=== PATIENT | male | born 1940 | race Caucasian/White ===

== ENCOUNTER → 2022-02-28 | Emergency (ER) | payer MEDICARE, BC ==
[~2022-02-28] MED LIST: HYDROcodone/Acetaminophen 5/325 mg Tablet ONE; Iopamidol 370 76% 100 ML VIAL ONE
[2022-02-28 11:09] LABS: #Basophils 0.1 10x3/uL (0.0-0.2); #Eosinphils 0.3 10x3/uL (0.0-0.5); #Monocytes 1.6 10x3/uL (0.0-1.1); #Neutrophils 7.4 10x3/uL (1.5-8.4); %Basophils 0.4 % (0.0-2.0); %Eosinophils 2.3 % (0.0-6.0); %Lymphocytes 16.2 % (18.0-47.0); %Monocytes 14.2 % (0.0-10.0); %Neutrophils 66.3 % (40.0-75.0); Hemoglobin 12.5 g/dL (13.5-17.5); Mean Corpuscular HGB CONC 32.9 g/dL (32.0-36.0); Mean Corpuscular Hemoglobin 30.3 pg (27.0-33.0); Mean Corpuscular Volume 92.2 fl (81.2-95.1); Platelet Count 332 10x3/uL (150-450); RBC Distribution Width 14.2 % (11.5-14.5); Red Blood Cell (RBC) Count 4.12 10x6/uL (4.32-5.72); White Blood Cell (WBC) Count 11.2 10x3/uL (3.5-10.5)
[2022-02-28 11:28] LABS: ALT (SGPT) 75 U/L (8-55); AST (SGOT) 45 U/L (5-34); Alkaline Phosphatase 81 U/L (40-110); Anion Gap 15 mmol/L (10-20); BUN (Urea Nitrogen) 26 mg/dL (8.4-25.7); Bilirubin, Total 0.6 mg/dL (0.2-1.2); Calc. Creatinine Clearance 0 mL/min (70-130); Calcium 9.8 mg/dL (7.8-10.44); Carbon Dioxide 24 mmol/L (23-31); Chloride 104 mmol/L (98-107); Globulin 3.2 g/dL (2.4-3.5); Glucose 72 mg/dL (83-110); Potassium 4.4 mmol/L (3.5-5.1); Protein, Total 7.2 g/dL (5.8-8.1); Sodium 139 mmol/L (136-145)
== END ==
LOC: CSHERS 10:24
DX: I71.00 Dissection of unspecified site of aorta (principal); I10 Essential (primary) hypertension; I48.91 Unspecified atrial fibrillation
CPT/HCPCS: 71045; 71275; 74174; 80053; 83880; 84484; 85025; 93005

== ENCOUNTER 2023-03-06 12:12 | Outpatient (CLI) | payer MEDICARE, BC ==
[~2023-03-06 12:12] MED LIST changes: -HYDROcodone/Acetaminophen 5/325 mg Tablet ONE
== END 2023-03-06 12:13 | disposition home or self-care (01) ==
LOC: CSHCT 12:12
PROVIDERS: ATTEND Specialist
DX: I71.20 Thoracic aortic aneurysm, without rupture, unspecified (principal); I71.010 Dissection of ascending aorta; Z95.828 Presence of other vascular implants and grafts; I70.90 Unspecified atherosclerosis; I72.3 Aneurysm of iliac artery
CPT/HCPCS: 71275; 74174; 82565; Q9967

== ENCOUNTER 2025-09-20 09:56 | Outpatient (CLI) | payer MEDICARE, BC ==
[2025-09-20 11:01] LABS: Estimated GFR - POC 42.0
== END 2025-09-20 09:57 | disposition home or self-care (01) ==
LOC: CSHCT 09:56
PROVIDERS: ATTEND Specialist
DX: Z86.79 Personal history of other diseases of the circulatory system (principal); Z98.890 Other specified postprocedural states; Z95.828 Presence of other vascular implants and grafts; I70.0 Atherosclerosis of aorta; I77.1 Stricture of artery
CPT/HCPCS: 36415; 71275; 82565